=== PATIENT | female | born 1955 | race Caucasian/White ===

== ENCOUNTER 2022-02-19 08:15 | Outpatient (RCR) | payer MEDICARE, BC, SELFPAY ==
--- NOTE | 2022-01-25 13:16 | PT.OPEX ---
PT [place] Out[facility] Eval PT [facility] Outpatient Eval Start: 01/25/22 11:02 Freq: Status: Active Protocol: Document 01/25/22 11:02 NMK (Rec: 01/25/22 12:52 NMK [id number]) E-Signed By Leonel Isbell DPT Physical Therapy Outpatient Evaluation Insurance Information Recert Due Date 04/27/22 Insurance Name Medicare B Medical Diagnosis Displaced bi-malleolar fracture of right lower leg, initial encounter for closed fracture S82.841A Treating Diagnosis Ankle pain; Ankle effusion; Decreased ankle ROM; Decreased ankle strength Referring Eleuterio Patel MD Subjective Subjective 66 y.o. female pt presents status post right ankle bi- malleolar ORIF (DOS: 12/13/2021 ). She reports she missed a step when stepping off the porch and landed awkwardly, rolled her ankle, and broke it . She presents with a knee scooter for ambulation at this time. She reports she has no complaints at this time. She has done a lot of resting and elevating at this time. She reports there is no pain at this time. She reports she is sleeping well at night and takes the boot off at night for sleeping. Much less tenderness to the touch this week as well. She uses a walker at home at times, but switches back and forth between them. Overall she reports she is doing well with no major concerns at this time. She really wants to be able to drive 7 hours in two weeks for a family trip. PMH: Depression, Metal implants, osteopenia Date of Surgery (If applicable) 12/13/21 Current Work Status Retired Preferred Name Glow Precautions Treatment Precautions/Contraindications WBAT; can begin to wean from CAM Boot as able; Osteopenia Weight Bearing Status Weight Bear as Tolerated Therapy Limitations/Systems Review Not Limited Objective Other/Pertinent Objective ROM Dorsiflexion: R 4 degrees Plantarflexion: R 45 degrees Inversion: R 15 degrees Eversion: R 6 degrees Strength: MMT R Dorsiflexion: 4+ Plantarflexion: 4+ Eversion: 4 (mild pain) Inversion: 4+ (mild pain) Circumferential measurement figure-8: 46 cm Assessment Assessment/Impression Findings are consistent with a diagnosis of right mechanical ankle pain s/p bimalleolar ORIF of right leg with DOS . Impairments related to current health condition include decreased ankle ROM, ankle pain, ankle swelling, and ankle weakness. These impairments contribute to decreased ability to perform ADL's including walking, stairs, transfers, and overall shows significant limitations in her gait. Examination of body systems including structures, functions, activity limitations and participation restrictions have been addressed. Skilled PT is recommended in order to improve the patient's mobility and restore their baseline level of function. Within session patient tolerating pre-gait activities , gentle ankle strengthening, and ankle ROM exercises with minimal reports of pain throughout our session. She also tolerated light gait training without any reports of increased pain. Primary Functional Limitations Walking, transfers, stairs Plan of Care Rehabilitation Potential Good Physical Therapy Goals Prior to 04/27/2022... 1. Pt will walk for 10 minutes and report <2/10 pain when doing so to show improvements in pain for performing walking as part of wellness program and in community 2. Pt will stand for 30 minutes when performing household tasks and report pain/symptoms less than 3/10 in order to complete ADL's with less pain 3. Pt will demonstrate normal walking gait pattern without use of CAM boot or gait aid and demonstrate reciprocal walking pattern and report no pain to show ability to ambulate how she did at baseline 4. Pt will be independent in HEP in order to show ability to self manage condition after discharge Coordination/Communication With Referral Source Treatment Plan/Direct Interventions Gait Training,Joint Mobilization,Manual Therapy, Neuromuscular Re-ed,Self-Care/ Home Management,Therapeutic Activities,Therapeutic Exercises Frequency/Duration 1-2 per week for 8-12 weeks Patient Will Be Discharged From Therapy Completion of LTG(s),Skills Plateau,Independent w/HEP, Independently Progressing Evaluation Billing Untimed Code Treatment Minutes 25 Complexity Moderate Certification Information Initial Certification Date 01/25/22 Ending Certification Date 04/27/22
== END 2022-04-20 11:23 | disposition home or self-care (01) ==
PROVIDERS: PCP Family Medicine; Visit Provider Orthopaedic Surgery Sports Medicine
DX: M25.571 Pain in right ankle and joints of right foot (principal); M25.572 Pain in left ankle and joints of left foot; S82.841A Displaced bimalleolar fracture of right lower leg, initial encounter for closed fracture; Z51.89 Encounter for other specified aftercare; M25.471 Effusion, right ankle; M25.472 Effusion, left ankle
CPT/HCPCS: 97110; 97112; 97116; 97140; 97162

== ENCOUNTER 2022-06-14 08:15 | Outpatient (CLI) | payer MEDICARE, BC, SELFPAY | END 2022-06-14 08:16 | disposition home or self-care (01) | LOC: OP CLINIC 08:17 | PROVIDERS: PCP Family Medicine; Visit Provider Surgery | DX: Z12.11 Encounter for screening for malignant neoplasm of colon (principal); K63.5 Polyp of colon; K62.1 Rectal polyp; K64.8 Other hemorrhoids; Z86.010 Personal history of colon polyps | CPT/HCPCS: 45380; 45385; 88305; J1200; J2250; J3010 ==

== ENCOUNTER 2022-08-17 07:19 | Outpatient (CLI) | payer MEDICARE, BC, SELFPAY ==
[2022-08-17 08:55] LABS: Chloride* 100 mmol/L (96-114); Potassium* 4.3 mmol/L (3.6-5.1); Sodium* 136 mmol/L (135-149)
[2022-08-17 08:57] LABS: Bilirubin Total* 0.4 mg/dL (0.1-1.5); Carbon Dioxide* 32 mmol/L (20-32); Cholesterol* 200 mg/dL (90-199); Creatinine* 0.6 mg/dL (0.5-1.5); Estimated Glomerular Filt Rate 98 ml/min
[2022-08-17 08:58] LABS: Alanine Aminotransferase* 32 U/L (4-35); Alkaline Phosphatase* 65 U/L (40-150); Blood Urea Nitrogen* 13 mg/dL (7-30); Calcium* 9.1 mg/dL (8.4-10.6); Glucose* 94 mg/dL (60-115); Total Protein* 6.6 g/dL (6.0-8.3); Triglycerides* 149 mg/dL (40-149)
[2022-08-17 08:59] LABS: HDL Cholesterol* 54 mg/dL (>=50); LDL Cholesterol Calculated 116 mg/dL (<100)
[2022-08-17 09:00] LABS: Aspartate Amino Transferase* 25 U/L (12-35)
[2022-08-17 09:14] LABS: Vitamin D 25 Hydroxy* 43 ng/mL (30-80)
== END 2022-08-17 07:20 | disposition home or self-care (01) ==
LOC: NFLDREF 07:19
PROVIDERS: PCP Family Medicine; Visit Provider Family Medicine
DX: Z00.00 Encounter for general adult medical examination without abnormal findings (principal); E55.9 Vitamin D deficiency, unspecified; E78.5 Hyperlipidemia, unspecified
CPT/HCPCS: 80053; 80061; 82306

== ENCOUNTER 2022-09-05 12:39 | Outpatient (CLI) | payer MEDICARE, BC, SELFPAY ==
--- NOTE | 2022-09-05 13:00 | CRLHL7_ITS ---
For Patients: As a result of the Cures Act, medical imaging exams and procedure reports are released immediately into your electronic medical record. You may view this report before your referring provider. If you have questions, please contact your health care provider. DXA BONE MINERAL DENSITY STUDY, 09/05/2022 Reason for exam: Osteopenia. Current height (inches): 65.0 Weight (lbs.): 136.0 Menopause age: 45 Ethnicity: White 1. Have you had a previous hip or vertebral fracture? No. 2. Have you had any fractures during your adult life which did not result from significant trauma (e.g., auto accident)? Yes. 3. Did either of your parents have a hip fracture? No. 4. Do you smoke? No. 5. Have you ever taken Glucocorticoids? No. 6. Do you have rheumatoid arthritis? No. 7. Do you have secondary osteoporosis? No. 8. Do you drink 3 or more alcoholic drinks per day? No. 9. Are you being treated for osteoporosis? No. 10. Have you ever taken any of the following medications: Actonel, Evista, Fosamax, Miacalcin, Reclast, Boniva, Forteo, HRT (i.e., estrogen/hormone therapy), Protelos, Prolia, Vitamin D, Calcium, other ??? please specify. ANSWER: Yes; vitamin D and calcium. 11. Do you have any of the following medical conditions: Anorexia or bulimia, asthma or emphysema, end stage renal disease, hyperparathyroidism, any seizure disorders, cancer, inflammatory bowel diseases, hysterectomy, other ??? please specify. ANSWER: No. 12. What was your maximum height (inches)? 65. 13. Do you perform weightbearing exercise regularly? No. 14. Do you regularly consume dairy products? Yes. 15. Do you drink caffeinated beverages? Yes. 16. At what age did your period start? 15. 17. Are you premenopausal? No. 18. How many full-term pregnancies have you had? 0. 19. Have you ever missed your period for more than 6 months in a row (not including or menopause)? No. TECHNIQUE: Bone mineral density study was performed using the [employer]. FINDINGS: The results of the study expressed as bone mineral density (BMD) are as follows: Lumbar Spine L1 to L3: BMD: 0.860 g/cm2. T-score: -1.4. Z-score: 0.4. Neck Left: BMD: 0.619 g/cm2. T-score: -2.1. Z-score: -0.5. Right: BMD: 0.625 g/cm2. T-score: -2.0. Z-score: -0.4. Total Left: BMD: 0.836 g/cm2. T-score: -0.9. Z-score: 0.5. Right: BMD: 0.807 g/cm2. T-score: -1.1. Z-score: 0.2. IMPRESSION: Osteopenia. COMPARISON: Compared with scan of 07/27/2020, the bone mineral density has decreased by 0.3% at the spine and increased by 2.0% at the hip. Compared with scan of 07/25/2017, the bone mineral density has decreased by 8.6% at the spine and increased by 6.6% at the hip. *Comparison exams done prior to 12/2019 were performed on different unit, [facility] FRAX 10-year Fracture Risk Major Osteoporotic Fracture: 17% Hip Fracture: 3.0% Reported Risk Factors: [place] () Neck BMD = 0.619, BMI = 22.6, previous fracture OSCAR FLOYD M.D. Diagnostic Radiologist [email or web address] Transcribed: 2:[address]/Dictated by: Oscar Floyd MD @ 09/06/2022 12:44:00 PM (Electronically Signed)
== END 2022-09-05 12:40 | disposition home or self-care (01) ==
LOC: RAD 12:39
PROVIDERS: PCP Family Medicine; Visit Provider Family Medicine
DX: M85.89 Other specified disorders of bone density and structure, multiple sites (principal)
CPT/HCPCS: 77080

== ENCOUNTER 2022-11-02 09:54 | Outpatient (CLI) | payer MEDICARE, BC, SELFPAY ==
--- NOTE | 2022-11-02 10:15 | CRLHL7_ITS ---
For Patients: As a result of the Century Cures Act, medical imaging exams and procedure reports are released immediately into your electronic medical record. You may view this report before your referring provider. If you have questions, please contact your health care provider. BILATERAL SCREENING MAMMOGRAM WITH COMPUTER-AIDED DETECTION AND TOMOSYNTHESIS TECHNIQUE: CC and MLO views were obtained. These mammographic images have been obtained using full-field digital technique. These mammographic images were interpreted with the benefit of computer-aided detection. Breast Tomosynthesis was used in this interpretation. COMPARISON FILM: 10/16/21, 07/27/20, 07/28/18. FINDINGS: There are scattered areas of fibroglandular density IMPRESSION: There is no radiographic evidence for malignancy. ASSESSMENT: BI-RADS Category 1: Negative RECOMMENDATION: Routine screening mammogram in 1 year. A lay language report of this examination will be provided to the patient. Oscar Cuellar M.D. Diagnostic Radiologist [email or web address] ANNA MARIE/Dictated by: Oscar Cuellar MD @ 11/02/2022 11:32:00 AM (Electronically Signed)
== END 2022-11-02 09:55 | disposition home or self-care (01) ==
LOC: MAMMO 09:55
PROVIDERS: PCP Family Medicine; Visit Provider Family Medicine
DX: Z12.31 Encounter for screening mammogram for malignant neoplasm of breast (principal)
CPT/HCPCS: 77063; 77067

== ENCOUNTER 2023-08-23 08:25 | Outpatient (CLI) | payer MEDICARE, BC, SELFPAY ==
--- OUTSIDE RECORDS SUMMARY | 2023-08-28 12:00 | XMS_ITS | Clinical Summary ---
Author Name Unknown Organization [facility] Address [place], [place] [address] Care Team Providers Care Roll Tester Name Role Phone Pcp, No Primary Care Provider Unavailabl e Allergies No known active allergies Medications Medication Sig Dispensed Refills Start Date End Date Status pravastatin (PRAVACHOL) 40 mg tablet 3 12/24/2015 Active sertraline (ZOLOFT) 100 mg tablet 1 12/09/2015 Active tretinoin 0.05 % 0.05 % cream 2 11/29/2015 Active Active Problems Problem Noted Date Diagnosed Date Hypercholesteremia 12/30/2015 Dysthymia 12/30/2015 Rosacea 12/30/2015 Immunizations Name Administration Dates Next Due Influenza, IIV4 04/13/2016 Family History Medical History Relation Name Comments Good Health Brother Stroke Father late 60s lived to Cancer-breast Maternal Grandmother Thyroid Disease Mother Good Health Sister 1 Good Health Sister 2 Good Health Sister 3 back issues Relation Name Status Comments Brother Father Maternal Grandmother Mother Sister 1 Sister 2 Sister 3 Social History Tobacco Use Types Packs/Day Years Used Date Smoking Tobacco: Never Smokeless Tobacco: Never Tobacco Cessation:Counseling Given: Yes Alcohol Use Standard Drinks/Week Comments No 0 (1 standard drink = 0.6 oz pur e alcohol) 1/month Sex and Gender Information Value Date Recorded Sex Assigned at Not on file Gender Identity Not on file Sexual Orientation Not on file Obstetrics History Last Filed Vital Signs Vital Sign Reading Time Taken Comments Blood Pressure 120/82 12/30/2015 12:36 PM CDT Pulse 73 12/30/2015 12:36 PM CDT Temperature 36.7 ??C (98.1 ??F) 12/30/2015 12:36 PM C DT Respiratory Rate - - Oxygen Saturation 99% 12/30/2015 12:36 PM CDT Inhaled Oxygen Concentration - - Weight 63 kg (139 lb) 12/30/2015 12:36 PM CDT Height 164 cm (5' 4.57) 12/30/2015 12:36 PM CDT Body Mass Index 23.44 12/30/2015 12:36 PM CDT Plan of Treatment Health Maintenance Due Date Last Done Comments COVID-19 vaccine series (#1) 01[birth year]26/1956 Tdap 1966 Depression screening for age 12+ 1967 Hepatitis C screening for age 18-79 1973 Tetanus booster 1975 Colonoscopy through age 75 2000 Lipids for age 45-75 2000 Zoster (shingles) series for age 50+ (1 of 2) 2005 Mammogram for age 45-75 05/19/2016 05/19/2015, 05/02 BMI (ht and wt on same day) for age 18+ 12/29/2016 0 12/30/2015 DEXA/DXA scan for age 65+ 2020 Pneumococcal series for age 65+ (1 of 1 - PCV) 2020 Influenza for age 65+ 03/29/2023 04/13/2016 Care Teams Roll Tester Relationship Specialty Start Date End Date Pcp, No . PCP - General 04/07/15
== END 2023-08-23 08:26 | disposition home or self-care (01) ==
LOC: NFLDREF 08-28 11:58
PROVIDERS: PCP Family Medicine; Referring Provider Family Medicine; Visit Provider Family Medicine
DX: M85.80 Other specified disorders of bone density and structure, unspecified site (principal); Z13.1 Encounter for screening for diabetes mellitus; E78.5 Hyperlipidemia, unspecified
CPT/HCPCS: 80061; 82306; 82947

== ENCOUNTER 2023-11-25 13:36 | Outpatient (CLI) | payer MEDICARE, BC, SELFPAY ==
--- NOTE | 2023-11-25 | MM_ITS ---
Patient: NOAH BARRAZA Facility:?[facility] Patient ID:?[id number] Site Patient ID:?[id number]. Site :?[id number] Study:?XRay-Breast Bilateral 3D W/CAD-11/25/2023 3:42:37 PM Ordering Physician:Elidia Final Report: BILATERAL SCREENING MAMMOGRAM WITH COMPUTER-AIDED DETECTION AND TOMOSYNTHESIS TECHNIQUE: CC and MLO views were obtained. These mammographic images have been obtained using full-field digital technique. These mammographic images were interpreted with the benefit of computer-aided detection. Breast Tomosynthesis was used in this interpretation. COMPARISON FILM: 11/02/22, 10/16/21, 07/27/20. FINDINGS: There are scattered areas of fibroglandular density. IMPRESSION: There is no radiographic evidence for malignancy. ASSESSMENT: BI-RADS Category 1: Negative RECOMMENDATION: Routine screening mammogram in 1 year. A lay language report of this examination will be provided to the patient. Oscar Cuellar M.D. Diagnostic Radiologist [email or web address] DSM/sp R& Transcribed: 3:38 p.m. SP/Dictated by: Oscar Cuellar MD @ 11/26/2023 1:11:00 PM Signed by:?Oscar Cuellar MD @11/26/2023 3:56:42 PM (Electronic Signature)
--- OUTSIDE RECORDS SUMMARY | 2023-11-25 13:45 | XMS_ITS | Clinical Summary ---
Author Name Unknown Organization [facility] Address [place], [place] [address] Care Team Providers Care Hedis Abstractor Name Role Phone Pcp, No Primary Care [...] Health Maintenance Due Date Last Done Comments Tdap 1966 Depression screening for age 12+ [...] 65+ (1 of 1 - PCV) 2020 COVID-19 vaccine series ( - 2022- season) 2023 Influenza for age 65+ 03/29/2024 04/13/2016 Procedures Procedure Name Priority Date/Time Associated Diagnosis Comments XR MAMMO BILAT SCREEN FFDM (IA) Routine 05/19/2015 8:47 AM CDT Visit for screening mammogram from Last 3 Months or Most Recently Relevant to Health Maintenance Results * XR MAMMO BILAT SCREEN FFDM (05/19/2015 8:47 AM CDT) Anatomical Region Laterality Modality BREASTS, Breast Left, Breast Right Bilateral Mammography Impressions 06/01/2015 12:37 PM SALES PLANNING COORDINATOR ??There is no radiographic evidence for malignancy. ??Recommend annual mammograms. A lay language report of this examination will be provided to the patient. MAMMOGRAM ASSESSMENT: ??ACR 1 Negative Narrative 06/01/2015 12:37 PM SALES PLANNING COORDINATOR XR MAMMO BILAT SCREEN FFDM [G0202.0] CLINICAL HISTORY: ??This is an asymptomatic 59 y.o. patient. INDICATION FOR EXAM: Mammogram Screening. TECHNIQUE: CC & MLO views were obtained. ??This digital study was evaluated with the assistance of Computer-Aided Detection. COMPARISON FILM: Yes 05/02/12 RAMESH PAUL FINDINGS: ??Mammographically, the breast tissue has scattered fibroglandular densities. ??There are no dominant masses, suspicious micro calcifications or areas of architectural distortion. Denise Parker MD MAMMO from Last 3 Months or Most Recently Relevant to Health Maintenance Care Teams Hedis Abstractor Relationship Specialty Start Date End Date Pcp, No . PCP - General 04/07/15
== END 2023-11-25 13:37 | disposition home or self-care (01) ==
LOC: MAMMO 13:38
PROVIDERS: PCP Family Medicine; Visit Provider Family Medicine
DX: Z12.31 Encounter for screening mammogram for malignant neoplasm of breast (principal)
CPT/HCPCS: 77063; 77067

== ENCOUNTER 2024-08-24 07:30 | Outpatient (CLI) | payer MEDICARE, BC, SELFPAY | END 2024-08-24 07:31 | disposition home or self-care (01) | LOC: NFLDREF 08-31 01:33 | PROVIDERS: PCP Family Medicine; Referring Provider Family Medicine; Visit Provider Family Medicine | DX: M85.80 Other specified disorders of bone density and structure, unspecified site (principal); E78.5 Hyperlipidemia, unspecified | CPT/HCPCS: 80053; 80061; 82306 ==